=== PATIENT | female | born 1995 | race Caucasian/White ===

== ENCOUNTER 2021-08-10 11:48 | Emergency (ER) | payer BC, SELFPAY ==
[2021-08-10 11:55] VITALS: BP 106/77; PULSE 71; RESP 12; TEMP 36.9; O2SAT 100
--- NOTE | 2021-08-10 12:05 | ED.GENADULT ---
HPI - General Adult General Chief complaint: Upper Respiratory Infection Stated complaint: CONGESTION/THROAT/SWOLLEN GLANDS Source: patient Mode of arrival: ambulatory Limitations: no limitations History of Present Illness HPI narrative: 25 y/o female. PMHx None reported. Presents to [facility] today with acute complaints of sore throat, 'hurts to swallow', bilateral otalgia, as well as increased nasal congestion in the past 5 days. She expresses concerns for possibly having 'Strep Throat'. No fever, nuchal rigidity, myalgia. No dyspnea, dysphagia, involuntary drooling. No cough, chest congestion. She reports negative SARS Covid 19 testing at [facility] in past week. She is without additional acute c/o illness upon PE. Related Data Allergies Allergy/AdvReac Type Severity Reaction Status Date / Time No Known Allergies Allergy Verified 08/10/21 11:55 Review of Systems Review of Systems: CONSTITUTIONAL: Denies fever, chills, sweats. EYES: Denies visual changes, redness, discharge. ENT: pOSITIVE rhinorrhea, congestion, sore throat, otalgia. CARDIOVASCULAR: Denies chest pain, palpitations, edema. RESPIRATORY: Denies dyspnea, wheezing, cough GASTROINTESTINAL: Denies abdominal pain, nausea, vomiting, diarrhea. GENITOURINARY: Denies dysuria, hematuria, abnormal discharge SKIN: Denies rash or itching. MUSCULOSKELETAL: Denies acute back pain, joint pain, or myalgia. NEUROLOGIC: Denies numbness, or focal weakness. PSYCHIATRIC: Denies anxiety or depression. All systems reviewed & are unremarkable except as noted in HPI and below Exam Narrative: GENERAL: This is a well-nourished, well-developed adult, in no apparent distress. HEAD: normocephalic, atraumatic. EYES: PERRL. Sclera clear/white. EARS: External ears normal, auditory canals clear and without drainage, TMs normal. NOSE: External nose normal. Positive Rhinorrhea, no obstruction, nares patent. THROAT: Mucous membranes moist, posterior pharynx is erythematous with mild exudative changes. No airway swelling or obstruction. NECK: Neck supple, non-tender without lymphadenopathy, masses or thyromegaly. CARDIOVASCULAR: Regular rate and rhythm without murmurs, gallops, or rubs. RESPIRATORY: Clear to auscultation. Breath sounds equal bilaterally. No wheezes, rales, or rhonchi. No distress. GASTROINTESTINAL: Abdomen soft, non-tender, nondistended. Bowel sounds are active. No guarding. SKIN: warm, intact with no suspicious lesions or rash, good texture and turgor. NEURO: Alert, active, and age appropriate. No focal neurologic deficits. Course Vital Signs Vital signs: Vital Signs Temperature 36.9 C 08/10/21 11:55 Pulse Rate 71 08/10/21 11:55 Respiratory Rate 12 08/10/21 11:55 Blood Pressure 106/77 08/10/21 11:55 Pulse Oximetry 100 08/10/21 11:55 Temperature 36.9 C 08/10/21 11:55 Pulse Rate 71 08/10/21 11:55 Respiratory Rate 12 08/10/21 11:55 Blood Pressure 106/77 08/10/21 11:55 Pulse Oximetry 100 08/10/21 11:55 Medical Decision Making Differential Diagnosis Differential Diagnosis: Differential Diagnosis: Consideration of the following conditions may be warranted for the presenting problem, they are not final diagnoses: upper respiratory infection, otitis media, sinusitis, RSV viral infection, bronchitis, pharyngitis, Streptococcal sore throat, COVID-19, and other. Medical Records Medical records reviewed: Yes I reviewed the external patient's medical records. Vital Signs Vital Signs: Vital Signs Temperature 36.9 C 08/10/21 11:55 Pulse Rate 71 08/10/21 11:55 Respiratory Rate 12 08/10/21 11:55 Blood Pressure 106/77 08/10/21 11:55 Pulse Oximetry 100 08/10/21 11:55 Temperature 36.9 C 08/10/21 11:55 Pulse Rate 71 08/10/21 11:55 Respiratory Rate 12 08/10/21 11:55 Blood Pressure 106/77 08/10/21 11:55 Pulse Oximetry 100 08/10/21 11:55 Lab Data Lab results reviewed: Yes I reviewed the p
== END 2021-08-10 12:15 | disposition home or self-care (01) ==
PROVIDERS: Emergency Provider Nurse Practitioner Adult Health
DX: J02.9 Acute pharyngitis, unspecified (principal)
CPT/HCPCS: 87081; 87880; 99213; G0463